=== PATIENT | female | born 2000 | race Caucasian/White ===

== ENCOUNTER 2018-12-24 20:58 | Emergency (ER) | payer BC ==
--- NOTE | 2018-12-24 21:10 | EDPHY ---
General Time Seen by Provider: 12/24/18 21:09 Narrative: CLINICAL IMPRESSION: Right shoulder pain ASSESSMENT/PLAN: Patient is a 18-year-old female with no significant medical history who presents with complaint of right shoulder pain after sustaining a mechanical fall. Patient is uncomfortable appearing however not toxic-appearing. Physical examination reveals tenderness to the lateral shoulder at the AC joint without obvious deformity or separation, limited range of motion secondary to pain. Shoulder x-ray reveals no acute bony abnormality. There was no evidence of acute fracture, dislocation, compartment syndrome, AC separation or neurovascular compromise. Her history and physical examination is most consistent with acute right shoulder pain. The patient was placed in a shoulder immobilizer, CMS intact post immobilization. She was given a single [place] while in the emergency department with improvement of her discomfort. She will otherwise continue Tylenol and ibuprofen. She is well established with an orthopedic surgeon, I provided a local referral should her symptoms persist or worsen. Return precautions discussed-patient to return to the emergency Department for significantly worsening or uncontrolled pain, significant swelling, numbness or tingling of the extremity, paleness or coolness of her digits, fever or for any other concerning symptom. The patient verbalizes understanding and she is in agreement with this plan. DIFFERENTIAL DX: Differential diagnosis includes but not limited to and in no certain order contusion, fracture, dislocation, rotator cuff injury, AC separation, compartment syndrome ED PROCEDURES: Procedure: Shoulder immobilizer A shoulder immobilizer was applied. After application I returned and re- examined the patient, it was immobilizing the joint and distal to the splint the patient's circulation and sensation was intact. CHIEF COMPLAINT: Right shoulder pain HPI: Patient is a 18-year-old female with no significant medical history presents to the emergency department complaining of right shoulder pain after sustaining a mechanical fall several hours prior to arrival. Patient reports she tripped and fell earlier today landing on her right shoulder, she did not experience much pain at that time. She initially had no issues with range of motion however is now experiencing increased pain on the lateral aspect with decreased range of motion. Patient has not taken anything for pain. She did not hit her head in the fall, she denies any neck or back pain. She has no previous injury or surgery to this shoulder. She denies any numbness or tingling of the extremity. PAST MEDICAL HISTORY: Denies Pertinent Past Surgical History: Denies Family History: Noncontributory Social History: Occasional alcohol, denies smoking or illicit drug use ROS: A full 10 point review of systems was negative except for those mentioned in HPI. PHYSICAL EXAM: General Appearance: Patient is well-developed, she is uncomfortable appearing however not toxic-appearing. HEENT: Normocephalic, atraumatic. External ears are normal. TMs are clear bilaterally no perforation or FB, no hemotympanum. Oropharynx clear is no erythema or exudates, no tonsillar hypertrophy or asymmetry. Dentition without abnormality. Eyes: PERRLA, no acute vision change, nystagmus, swelling, discharge, pain or photosensitivity. Conjunctiva pink, no pallor or injection Respiratory: There are no retractions, lungs are clear to auscultation. Cardiac: Regular rate and rhythm, no murmurs or gallops. Gastrointestinal: Abdomen is soft, nontender, bowel sounds normal, no masses/ hernia, no rigidity, guarding or focal peritoneal findings. Upper Extremities: No clavicle tenderness or deformity. No increased warmth on palpation. No obvious deformity, abrasions, ecchymosis. No atrophy or asymmetry compared to opposite side. Limited ROM to flexion/extension/abduction/adduction, pain elicited with all movement. Patient with tenderness to palpation at the AC joint without obvious deformity or separation. She has no scapular tenderness to palpation. 2+ radial pulses with capillary refill < 2 seconds. 5/5 strength at fingers, wrist, elbow. Resisted wrist extension (radial nerve): normal. Resisted thumb opposition ( median nerve): normal. Resisted finger abduction (ulnar nerve): normal. Sensation intact throughout. Neck: FROM intact to flexion/extension/rotational movement. No midline tenderness. No step-off or deformity. Back: No step-off, palpable bony abnormality, edema, erythema or ecchymosis of the cervical, thoracic or lumbar spines. Thoracic and lumbar spines with no midline or paraspinal muscle tenderness to palpation. Full range of motion of all spines. 5/5 and equal strength of the UEs and LEs bilaterally including shoulder shrug ( except right shoulder as mentioned above). Pulses: 2+ and equal radial, DP and PT pulses bilaterally. Sensation intact and symmetric to light touch from face, UEs and LEs bilaterally. Skin: Warm, dry, no rashes, no nodules on palpation. MEDICAL DECISION MAKING: Patient was seen independently. Secondary supervising physician at time of evaluation was Dr. White, he did not evaluate this patient. Diagnosis: Right shoulder pain. New, requires workup Summary: See Assessment and Plan for summary of ED visit Clinical lab tests: Not applicable. Independent visualization of images, tracing, or specimens: Yes. Decision to obtain medical records or history from someone other than the patient: No Review / Summarize previous medical records: None available Discussed patient with another provider: Yes, Dr. White Patient Progress: Stable, discharged. - Diagnostics Imaging Results: Imaging Impressions Shoulder X-Ray 12/24/18 21:17 Impression: No acute abnormality. - History Smoking Status: Never smoked - Objective Vital Signs: Initial Vital Signs Temperature (C) 36.3 C 12/24/18 21:02 Heart Rate 82 12/24/18 21:02 Respiratory Rate 18 12/24/18 21:02 Blood Pressure 126/83 H 12/24/18 21:02 O2 Sat (%) 96 12/24/18 21:02 O2 Delivery Mode Room Air Allergies/Adverse Reactions: No Known Allergies Allergy (Unverified 12/24/18 21:06) Home Medications: Medication Instructions Recorded Emilee 12/24/18 Adderall 10 MG (*) 12/24/18 Medications Given: Discontinued Medications Hydrocodone Bitart/Acetaminophen ([place] 5/325) 1 tab PO EDNOW ONE Stop: 12/24/18 21:48 Last Admin: 12/24/18 21:57 Dose: 1 tab Hydrocodone Bitart/Acetaminophen ([place] 5/325mg Prepack#6) 1 btl TAKEHOME EDNOW ONE Stop: 12/24/18 22:34 Last Admin: 12/24/18 22:59 Dose: 1 btl Ibuprofen (Motrin) 400 mg PO EDNOW ONE Stop: 12/24/18 21:18 Last Admin: 12/24/18 21:20 Dose: 400 mg Departure - Departure Disposition: Home, Routine, Self-Care Clinical Impression: Shoulder pain, acute Condition: Good Instructions: Hydrocodone/Acetaminophen (By mouth), Shoulder Pain (ED) Additional Instructions: DISCHARGE INSTRUCTIONS FROM YOUR DOCTOR Thank you for visiting our emergency department today. Please keep in mind that discharge from the emergency department does not mean that there is nothing wrong - it simply means that we have not identified an emergency condition that requires further evaluation or treatment in the hospital. You should always plan to follow up with primary care for re-evaluation of your condition in the next 2-3 days. If you have been referred to a specialist, please call as soon as possible ( today or tomorrow) to schedule your follow up appointment at the appropriate time. Rest, no heavy lifting, pushing, pulling, carrying with the affected arm. Apply ice on and off to the painful area, whichever feels better. Wear the sling as applied on and off as applied until follow-up. Gentle range of motion exercises several times daily to prevent your shoulder from stiffening up -- pendulum exercises as we discussed. Avoid prolonged immobilization as we discussed as shoulder injuries are prone to "frozen shoulder" which is a significant complication and requires intensive physical therapy to rehabilitate. For pain control: You may take Tylenol, I recommend 500-1000 mg every 6-8 hours as needed. Take with food and a full glass of water. Stop taking if this is upsetting her stomach. Do not exceed 4000 mg in a 24 hr period. You may also take ibuprofen, recommend 400 mg every 6 hr. Take with food and a full glass of water. Stop taking if this upsets her stomach. Do not exceed 2400 mg in a 24 hr period. You have been prescribed [place] which is a narcotic. Please do not drive or operate machinery while taking this medication as it may make you drowsy. It may also be habit forming. This medication can also cause constipation, recommend taking 100 mg of Colace twice daily while taking this medication. This medication also contains Tylenol, please do not take other Tylenol containing products with this medication. Continue your regular medication as prescribed. Call and schedule with a primary care provider for a follow-up appointment and to establish care for your primary care needs. Return for increased or unmanageable pain, inability to move the shoulder or neck, fever, chills, redness, warmth, swelling, numbness, tingling or weakness of the arm, loss of preparation department supervisor strength, coolness of the fingertips, chest pain, shortness of breath, or for any other new, worsening or worrisome symptoms. People present with illnesses and injuries in different ways, and it is always possible that we have missed something. You may always return for re-evaluation if symptoms worsen or if they are not improving or if you develop new/different symptoms. Again, thank you for choosing our emergency department. We hope that you feel better. Referrals: NONE *PRIMARY CARE P,. [Primary Care Provider] - As per Instructions Paul Boss MD [Medical Doctor] - 2-3 days, call for appt. Jan Maya MD [Medical Doctor] - As per Instructions (Establish care with a primary care provider if you do not have 1. )
[2018-12-24] MEDS ORDERED: IBUPROFEN 200 MG TAB PO ONE (21:17)
[2018-12-24] MEDS ORDERED: HYDROCODONE/APAP 5/325 TAB PO ONE (21:47)
[2018-12-24] MEDS ORDERED: HYDROCOD/APAP 5/325 PREPACK#6 BTL TAKEHOME ONE (22:33)
[2018-12-24 23:09] VITALS: BP 126/72
== END 2018-12-24 23:09 | disposition home or self-care (01) ==
DX: M25.511 Pain in right shoulder (principal)